=== PATIENT | female | born 1935 | race Caucasian/White ===

== ENCOUNTER 2017-03-29 16:19 | Emergency (ER) | payer MEDICARE, BC ==
[2007-02-02 22:46] VITALS: BP 104/57
[~2017-03-29] VITALS: Ht 154.9 cm; Wt 94.5 kg
[~2017-03-29 16:19] MED LIST: AMBIEN 10MG10 MG PO; B12; BENADRYL25 MG PO; BUMETANIDE1 MG PO; BUMEX 1MG TA1 MG/TA1 PO; BUMEX0.5 MG PO; BUMEX1 MG PO; CALCIUM CARBONATE; CALCIUM1 CAP PO; CENTRUM SILVER1 TA1 PO; CETIRIZINE PO; COREG 3.123.125 MG/T PO; COZAAR 50MG50 MG/TAB PO; COZAAR50 MG PO; DIOVAN 160MG160 MG PO; DIOVAN 80MG80 MG PO; ELIQUIS 2.5 PO; EVISTA 60MG60 MG/TAB PO; FEOSOL45 MG PO; FISH OIL500 MG PO; FLONASEALLERGY NS; FLOVENT0.044 MG/A IH; Feosol; HCTZ 25MG TAB25 MG PO; HCTZ 25MG25 MG PO; K-TAB20 PO; LEVOTHYROXINE; LEVOXYL0.05 MG PO; LOMOTIL 0.025 M1 TAB PO; MAG-OX 400400 MG/TAB PO; MAGNESIUM OXID400 MG PO; MAGNESIUM OXIDE PO; MULTAQ400 MG PO; MYRBETR25MG PO; OCUVITE1 TA1 PO; POTASSIUM CH2 MEQ/ML PO; POTASSIUM CL 110 MEQ PO; PRILOSEC 20MG20 MG PO; SYSTANE 0.3-0.1 EACH OP; SYSTANE 0.4%-0.1 SOL OP; TAMBOCOR 1100 MG/TAB PO; TAMBOCOR50 MG PO; TRAMADOL; TYLENOL 325MG325 MG PO; Tylenol Arthritis; VIT B 12 INJECTION; VITAMIN B11000 MCG/M IM; ZOFRAN 4MG T4 MG/TAB PO; ZYRTEC; ZYRTEC 10MG10 MG PO; oxygen; vagifem
[2017-03-29 16:24] VITALS: TEMP 98.4
[2017-03-29 17:16] LABS: BASO % 0.3 % (0.0-2.0); EOS # 0.2 (0.0-0.7); EOS % 3.9 % (0-4.0); GRAN # 3.8 (1.4-6.5); GRAN % 61.4 % (42.2-75.2); LYMPH # 1.3 (1.2-3.4); LYMPH % 21.4 % (20.0-51.0); MEAN CELL VOLUME 101 fl (80.0-100.0); MEAN CORPUSCULAR HGB CONC 32 g/dl (33.0-37.0); MEAN PLATELET VOLUME 9.7 fl (7.4-10.4); MONO # 0.8 (0.1-0.6); MONO % 12.7 % (1.7-9.3); PLATELET COUNT 306 K/mm3 (130-400); RED BLOOD COUNT 3.23 M/mm3 (4.10-5.30); REDCELL DISTRIBUTION WIDTH-CV 13.2 % (11.5-14.5); WHITE BLOOD COUNT 6.2 K/mm3 (4.8-10.8)
[2017-03-29] MEDS ORDERED: XARELTO15 MG PO (17:17)
[2017-03-29 17:18] LABS: ADJUSTED CALCIUM 9.9 mg/dL (8.4-10.2); ALBUMIN 4.3 gm/dL (3.5-5.0); BILIRUBIN,TOTAL 0.6 mg/dL (0.0-1.0); CALCIUM 10.1 mg/dL (8.4-10.2); CREATININE, serum 0.97 mg/dL (0.52-1.25); POTASSIUM 4.8 mmol/L (3.4-5.0); TOTAL PROTEIN 7.5 gm/dL (6.4-8.2)
[2017-03-29 17:20] LABS: INR 1.2 (0.8-3.0); PROTHROMBIN TIME 13.3 SECONDS (9.7-12.8)
[2017-03-29] MEDS ORDERED: ZANTAC 150150 MG (17:20)
[2017-03-29] MEDS ORDERED: TIKOSYN0.5 MG PO (17:21)
[2017-03-29] MEDS ORDERED: ASPIRIN 81M81 MG/TA2 PO (17:21)
[2017-03-29 17:23] LABS: PARTIAL THROMBOPLASTIN TIME 29.2 SECONDS (26.0-37.0)
[2017-03-29 17:25] LABS: HEMATOCRIT 32.6 % (37.0-47.0); HEMOGLOBIN 10.3 g/dl (12.5-16.0); MEAN CORPUSCULAR HEMOGLOBIN 32 pg (27.0-31.0)
[2017-03-29 17:29] LABS: TROPONIN-I 0.015 ng/mL (0.000-0.034)
[2017-03-29 21:01] VITALS: BP 113/68; PULSE 64
== END 2017-03-29 21:21 | disposition home or self-care (01) ==
LOC: COL.ER 16:19
PROVIDERS: Emergency Medicine
DX: I48.91 Unspecified atrial fibrillation (principal); Z79.01 Long term (current) use of anticoagulants; Z95.0 Presence of cardiac pacemaker
CPT/HCPCS: J2704

== ENCOUNTER → 2017-04-16 | Outpatient (CLI) | payer MEDICARE, BC ==
[~2017-04-16] MED LIST changes: +ASPIRIN 81M81 MG/TA2 PO; +TIKOSYN0.5 MG PO; +XARELTO15 MG PO; +ZANTAC 150150 MG
== END ==
LOC: COL.RAD 18:01
DX: I08.0 Rheumatic disorders of both mitral and aortic valves (principal); I48.91 Unspecified atrial fibrillation; I31.3 Pericardial effusion (noninflammatory); I28.8 Other diseases of pulmonary vessels

== ENCOUNTER → 2017-06-16 | Outpatient (CLI) | payer MEDICARE, BC | LOC: MC.RAD 12:57 | DX: Z12.31 Encounter for screening mammogram for malignant neoplasm of breast (principal) ==

== ENCOUNTER 2017-10-13 11:30 | Outpatient (RCR) | payer MEDICARE, BC | END 2017-10-14 | disposition home or self-care (01) | LOC: WSPT | DX: R53.1 Weakness (principal); Z90.710 Acquired absence of both cervix and uterus; Z90.49 Acquired absence of other specified parts of digestive tract; Z98.1 Arthrodesis status; Z98.890 Other specified postprocedural states | CPT/HCPCS: G8978-GP; G8979-GP ==

== ENCOUNTER 2018-01-13 14:00 | Outpatient (RCR) | payer MEDICARE, BC | END 2018-01-20 12:01 | disposition home or self-care (01) | LOC: WSPT 14:00 | DX: R53.1 Weakness (principal) | CPT/HCPCS: G8978-GP; G8979-GP ==

== ENCOUNTER 2018-03-11 13:04 | Outpatient (RCR) | payer SELFPAY | END 2018-05-15 | disposition home or self-care (01) | LOC: COL.CR | DX: Z02.9 Encounter for administrative examinations, unspecified (principal) ==

== ENCOUNTER → 2018-06-28 | Outpatient (CLI) | payer MEDICARE, BC | LOC: MC.RAD 13:46 | DX: Z12.31 Encounter for screening mammogram for malignant neoplasm of breast (principal); Z95.818 Presence of other cardiac implants and grafts ==

== ENCOUNTER 2018-07-12 11:15 | Outpatient (RCR) | payer MEDICARE | END 2018-07-12 11:39 | disposition home or self-care (01) | LOC: WSPT 11:15 | DX: M25.562 Pain in left knee (principal); Z96.652 Presence of left artificial knee joint | CPT/HCPCS: G8978-GP; G8979-GP ==

== ENCOUNTER → 2019-10-30 | Outpatient (CLI) | payer MEDICARE, BC | LOC: MC.RAD 09-07 13:00 | DX: Z12.31 Encounter for screening mammogram for malignant neoplasm of breast (principal); Z95.0 Presence of cardiac pacemaker ==

== ENCOUNTER → 2020-03-14 | Outpatient (CLI) | payer MEDICARE, BC | LOC: COL.LAB 09:31 | DX: R05 Cough (principal); R06.02 Shortness of breath; R07.89 Other chest pain; Z20.828 Contact with and (suspected) exposure to other viral communicable diseases ==

== ENCOUNTER → 2020-12-25 | Outpatient (CLI) | payer MEDICARE, BC | LOC: MC.RAD 14:12 | DX: Z12.31 Encounter for screening mammogram for malignant neoplasm of breast (principal) ==

== ENCOUNTER → 2021-02-28 | Outpatient (CLI) | payer MEDICARE, BC | LOC: COL.RAD 12:00 | DX: N28.1 Cyst of kidney, acquired (principal); R93.421 Abnormal radiologic findings on diagnostic imaging of right kidney ==

== ENCOUNTER → 2021-12-26 | Outpatient (CLI) | payer MEDICARE, BC | LOC: MC.RAD 13:44 | DX: Z12.31 Encounter for screening mammogram for malignant neoplasm of breast (principal) ==

== ENCOUNTER → 2022-01-09 | Outpatient (CLI) | payer MEDICARE, BC | LOC: COL.RAD 11:01 | DX: N28.89 Other specified disorders of kidney and ureter (principal) | CPT/HCPCS: Q9967 ==

== ENCOUNTER 2022-03-07 18:51 | Emergency (ER) | payer MEDICARE, BC ==
[~2022-03-07] VITALS: Ht 152.4 cm; Wt 84.1 kg
[2022-03-07 18:55] VITALS: TEMP 98.1
[2022-03-07 21:38] VITALS: BP 137/86; PULSE 58
== END 2022-03-07 21:38 | disposition home or self-care (01) ==
LOC: COL.ER 18:51
DX: S51.812A Laceration without foreign body of left forearm, initial encounter (principal); S00.93XA Contusion of unspecified part of head, initial encounter; S80.02XA Contusion of left knee, initial encounter; S40.012A Contusion of left shoulder, initial encounter; S60.212A Contusion of left wrist, initial encounter; I48.91 Unspecified atrial fibrillation; Z79.82 Long term (current) use of aspirin; Z28.310 Unvaccinated for COVID-19; W01.198A Fall on same level from slipping, tripping and stumbling with subsequent striking against other object, initial encounter; Y92.59 Other trade areas as the place of occurrence of the external cause

== ENCOUNTER 2022-04-18 14:51 | Inpatient (IN) | payer MEDICARE, BC ==
[2007-02-02 22:46] VITALS: BP 104/57
[~2022-04-18] VITALS: Ht 152.4 cm; Wt 88.3 kg
[2022-04-18 15:11] LABS: BASO % 0.1 % (0.0-2.0); EOS # 0.2 K/mm3 (0.0-0.7); EOS % 3.2 % (0.0-4.0); GRAN # 4.4 K/mm3 (1.4-6.5); GRAN % 64.9 % (42.2-75.2); HEMATOCRIT 47.7 % (37.0-47.0); HEMOGLOBIN 15.3 g/dl (12.5-16.0); LYMPH # 1.6 K/mm3 (1.2-3.4); LYMPH % 22.7 % (20.0-51.0); MEAN CELL VOLUME 104 fl (80.0-100.0); MEAN CORPUSCULAR HEMOGLOBIN 33 pg (27-31); MEAN CORPUSCULAR HGB CONC 32 g/dl (33.0-37.0); MEAN PLATELET VOLUME 9.6 fl (7.4-10.4); MONO # 0.6 K/mm3 (0.1-0.6); MONO % 8.8 % (1.7-9.3); PLATELET COUNT 181 K/mm3 (130-400); REDCELL DISTRIBUTION WIDTH-CV 12.5 % (11.5-14.5)
[2022-04-18 15:21] LABS: PARTIAL THROMBOPLASTIN TIME 31.4 SECONDS (26.0-37.0)
[2022-04-18 15:31] LABS: ALBUMIN 4.2 gm/dL (3.4-4.8); BILIRUBIN,TOTAL 0.7 mg/dL (0.2-1.2); CREATININE, serum 1.33 mg/dL (0.57-1.11); POTASSIUM 4.4 mmol/L (3.5-4.5); TOTAL PROTEIN 7.5 gm/dL (6.2-8.1)
[2022-04-18 15:36] LABS: TROPONIN-I 0.019 ng/mL (0.00-0.033)
[2022-04-18] MEDS ORDERED: ALDACTONE 25MG25 M1 PO ×2 (16:51→16:52)
[2022-04-18] MEDS ORDERED: LIPITOR 10MG10 MG PO (16:52)
[2022-04-18] MEDS ORDERED: PROTONIX20 MG PO (16:53)
[2022-04-18] MEDS ORDERED: JARDIANCE25 (16:53)
[2022-04-18] MEDS ORDERED: SENOKOT8.6 MG PO (16:54)
[2022-04-18] MEDS ORDERED: OCUVITE BLUE L1 EACH PO (16:56)
[2022-04-18 17:23] VITALS: BP 150/74; PULSE 76; TEMP 97.8
[2022-04-18 20:43] VITALS: BP 117/63; PULSE 75; TEMP 97.5
[2022-04-18 23:06] VITALS: BP 150/81; PULSE 73; TEMP 97.4
--- NOTE | 2022-04-19 01:41 | NUR ---
PATIENT HOME MEDICATIONS GIVEN TO CHEMICAL LABORATORY ASSISTANT TO TAKE TO [facility] FOR LABELING AND BAR CODE.
[2022-04-19 04:24] VITALS: BP 105/58; PULSE 75; TEMP 98.4
--- NOTE | 2022-04-19 05:32 | NUR ---
PATIENT HAS HAD A RESTLESS NIGHT AFTER ABMIEN AND MELETONIN. PATIENT DENIES NEEDS OR CONCERNS AND REPORTS SHE HAS BEEN DRINKING HER WATER AND VOIDING WITHOUT ISSUE. TAMIKOT HAS CALL LIGHT WITHIN REACH AND ENCOURAGED TO CALL WITH ANY NEEDS OR CONCERNS. PATIENT EXPRESSES APPRECIATION TO NURSE.
[2022-04-19 06:09] LABS: BASO % 0.2 % (0.0-2.0); EOS # 0.3 K/mm3 (0.0-0.7); EOS % 4.2 % (0.0-4.0); GRAN # 3.7 K/mm3 (1.4-6.5); GRAN % 61.8 % (42.2-75.2); HEMATOCRIT 41.2 % (37.0-47.0); LYMPH # 1.4 K/mm3 (1.2-3.4); LYMPH % 23.5 % (20.0-51.0); MEAN CELL VOLUME 104 fl (80.0-100.0); MEAN CORPUSCULAR HEMOGLOBIN 33 pg (27-31); MEAN CORPUSCULAR HGB CONC 32 g/dl (33.0-37.0); MONO # 0.6 K/mm3 (0.1-0.6); PLATELET COUNT 156 K/mm3 (130-400); RED BLOOD COUNT 3.98 M/mm3 (4.10-5.30); REDCELL DISTRIBUTION WIDTH-CV 12.4 % (11.5-14.5)
[2022-04-19 06:14] LABS: HEMOGLOBIN 13.1 g/dl (12.5-16.0)
[2022-04-19 07:32] LABS: CALCIUM 9.4 mg/dL (8.4-10.2); CHOLESTEROL RISK RATIO 2.7; CREATININE, serum 1.14 mg/dL (0.57-1.11); MAGNESIUM 2.1 mg/dL (1.6-2.6); POTASSIUM 3.9 mmol/L (3.5-4.5)
[2022-04-19 07:35] VITALS: BP 114/73; PULSE 76; TEMP 97.7
--- NOTE | 2022-04-19 10:03 | NUR ---
PT RESTING IN BED. MORNING MEDICATIONS GIVEN. SHIFT ASSESSMENT COMPLETED. PT DENIES ANY CHEST PAIN OR NEEDS. WILL CONTINUE TO MONITOR.
--- NOTE | 2022-04-19 10:25 | NUR ---
SW met with patient to complete intake. Patient provides that she lives in [facility] with her Gene [phone]. Patient states that she does not use a walker regularly, but when she walks long distances she uses one. patient states she is independent with ADLs and does not utilize health services at this time. PCP is Dr. Krishnan, and pharmacy is [facility]. DPOA/HC is spouse. Patient states her plan is to return to her home upon DC, but was informed she may be going to [facility]. SW will continue to follow. DC plan: home
[2022-04-19 11:38] VITALS: BP 135/84; PULSE 74; TEMP 98.7
--- NOTE | 2022-04-19 14:10 | NUR ---
TELE D/C. PT DISCHARGED TO EMS. ATTEMPTED TO CALL REPORT TO RECIEVING RN AT THIS TIME. WILL ATTEMPT AGAIN LATER.
--- NOTE | 2022-04-19 15:04 | NUR ---
REPORT CALLED TO MALIK SULTANA AT [facility].
== END 2022-04-19 14:12 | disposition short-term general hospital (02) | DRG 311 ==
LOC: COL.ER 14:51 → MEDICAL 16:11 → COL.ER 16:11 → MEDICAL 17:21
PROVIDERS: Emergency Medicine; ADMIT Internal Medicine
DX: I20.9 Angina pectoris, unspecified (principal); I13.0 Hypertensive heart and chronic kidney disease with heart failure and stage 1 through stage 4 chronic kidney disease, or unspecified chronic kidney disease; I50.32 Chronic diastolic (congestive) heart failure; I48.0 Paroxysmal atrial fibrillation; N18.30 Chronic kidney disease, stage 3 unspecified; E88.81 Metabolic syndrome and other insulin resistance; K21.9 Gastro-esophageal reflux disease without esophagitis; G47.33 Obstructive sleep apnea (adult) (pediatric); E78.5 Hyperlipidemia, unspecified; M81.0 Age-related osteoporosis without current pathological fracture; Z79.899 Other long term (current) drug therapy; Z95.0 Presence of cardiac pacemaker; Z79.82 Long term (current) use of aspirin
CPT/HCPCS: A9270; J1644; J7030; Q9967

== ENCOUNTER → 2024-04-13 | Outpatient (CLI) | payer MEDICARE, BC ==
[~2024-04-13] MED LIST changes: +ALDACTONE 25MG25 M1 PO; +ASPIRIN E.C. 8181 MG PO; +BUMEX2 MG PO; +CALCIUM 600 PLU1 TAB PO; +COMPLETE MULTI1 TAB PO; +JARDIANCE25; +JARDIANCE25 PO; +LIPITOR 10MG10 MG PO; +MAGNESIUM500 MG PO; +MELATONIN5 M1 PO; +OCUVITE BLUE L1 EACH PO; +OSCAL 500 TAB500 MG PO; +PROTONIX20 MG PO; +SENNA-S 50 MG-81 TAB PO; +SENOKOT8.6 MG PO; +SYSTANE COMPLET10 M1 OP; +TYLENOL 500MG500 MG PO; +VITAMIN D 400400 IU PO
== END ==
LOC: MC.RAD 10:51
DX: Z12.31 Encounter for screening mammogram for malignant neoplasm of breast (principal)

== ENCOUNTER → 2024-05-04 | Outpatient (CLI) | payer MEDICARE, BC ==
[~2024-05-04] MED LIST changes: +Triamcinolone 40 MG/ML 1 ML VIAL IJ SCH
== END ==
LOC: COL.RAD 13:15
DX: M47.818 Spondylosis without myelopathy or radiculopathy, sacral and sacrococcygeal region (principal)
CPT/HCPCS: G0260; J0665; J3301